=== PATIENT | male | born 1960 | race Caucasian/White ===

== ENCOUNTER 2017-05-12 19:36 | Emergency (ER) | payer MEDICARE, OTHER ==
--- NOTE | 2017-05-12 19:48 | ED Physician Documentation ---
General Adult - HISTORIAN Historian: patient, parent - HPI Stated Complaint: urinary retention Chief Complaint: General Adult Onset: hours Timing: still present Severity: moderate Further Comments: yes (Pt is a 57 yo male with cerebral palsy and urinary retention that began this am. Pt had similar problem 6 months ago, which was tx 'd with mason cath and meds. Pt is on Tamsulosin and Finasteride in addition to his other meds.) - PAST HX Allergies/Adverse Reactions: Allergies Allergy/AdvReac Type Severity Reaction Status Date / Time oxycodone HCl [From Percocet] Allergy Severe Anaphylaxis Verified 11/03/15 19:45 acetaminophen [From Percocet] Allergy Anaphylaxis Verified 11/03/15 19:45 Home Medications: Ambulatory Orders Medication Instructions Recorded Diazepam [Valium] 5 mg PO BID 04/19/13 Clonazepam [Klonopin] 0.5 mg PO Q6 PRN 10/04/14 Levothyroxine Sodium [Synthroid] 50 mcg PO D 10/28/15 Naproxen [Naprosyn] 500 mg PO BID PRN 10/28/15 Omeprazole [Omeprazole] 20 mg PO AM 10/28/15 Tamsulosin HCl [Flomax] 0.4 mg PO AM 10/28/15 Tramadol HCl [Tramadol HCl] 50 mg PO Q4 PRN 10/28/15 - VITAL SIGNS Vital Signs: Vital Signs Temp Pulse Resp BP Pulse Ox 141/64 01/23/16 02:40 Discharge Referrals: Ashley Lauren MD [Primary Care Provider] - 2 Days Home Medications: Ambulatory Orders Diazepam [Valium] 5 mg PO BID 04/19/13 Clonazepam [Klonopin] 0.5 mg PO Q6 PRN 10/04/14 Levothyroxine Sodium [Synthroid] 50 mcg PO D 10/28/15 Naproxen [Naprosyn] 500 mg PO BID PRN 10/28/15 Omeprazole [Omeprazole] 20 mg PO AM 10/28/15 Tamsulosin HCl [Flomax] 0.4 mg PO AM 10/28/15 Tramadol HCl [Tramadol HCl] 50 mg PO Q4 PRN 10/28/15
--- NOTE | 2017-05-12 19:58 | ED Physician Documentation ---
General Adult - HISTORIAN Historian: patient - HPI Stated Complaint: urinary retention Chief Complaint: General Adult Onset: hours Timing: still present Severity: moderate Further Comments: yes (Pt is a 57 yo male with cerebral palsy and c/o urinary retention. No void since 1:30 am. No bm since yesterday. Pt usually has bm daily. Pt had urinary retention 6 mos ago with similar presentation and is now taking tamsulosin and finasteride in addition to his other meds.) - ROS CONST: no problems EYES/ENT: none CVS/RESP: none GI/: problems urinating MS/SKIN/LYMPH: none - PAST HX Past History: other (anxiety, GERD, thyroid d/o, cp) Allergies/Adverse Reactions: Allergies Allergy/AdvReac Type Severity Reaction Status Date / Time oxycodone HCl [From Percocet] Allergy Severe Anaphylaxis Verified 05/12/17 21:12 acetaminophen [From Percocet] Allergy Anaphylaxis Verified 05/12/17 21:12 Home Medications: Ambulatory Orders Medication Instructions Recorded Diazepam [Valium] 5 mg PO BID 04/19/13 Clonazepam [Klonopin] 0.5 mg PO Q6 PRN 10/04/14 Levothyroxine Sodium [Synthroid] 50 mcg PO D 10/28/15 Naproxen [Naprosyn] 500 mg PO BID PRN 10/28/15 Omeprazole [Omeprazole] 20 mg PO AM 10/28/15 Tamsulosin HCl [Flomax] 0.4 mg PO AM 10/28/15 Tramadol HCl [Tramadol HCl] 50 mg PO Q4 PRN 10/28/15 Ciprofloxacin HCl [Cipro] 500 mg PO BID #14 tablet 05/12/17 Cyanocobalamin-Salcaprozat Sod 1,000 mcg PO 05/12/17 [Eligen B12] Finasteride [Proscar] 5 mg PO HS 05/12/17 - SOCIAL HX Smoking History: non-smoker - FAMILY HX Family History: No - VITAL SIGNS Vital Signs: Vital Signs Temp Pulse Resp BP Pulse Ox 98.2 F 70 16 109/77 97 05/12/17 19:36 05/12/17 19:36 05/12/17 19:36 05/12/17 19:36 05/12/17 19:36 - REVIEWED ASSESSMENTS Nursing Assessment Reviewed: Yes Vitals Reviewed: Yes Progress - Progress Progress: NS 500 cc IVF pt voided 150 cc in ER u/a neg Rx cipro 500 mg po bid x 7 days. General Adult Physical Exam - PHYSICAL EXAM GENERAL APPEARANCE: mild distress EENT: pharynx normal NECK: normal inspection, supple RESPIRATORY: no resp distress, chest non-tender, breath sounds normal CVS: reg rate & rhythm, heart sounds normal ABDOMEN: soft, no organomegaly, normal bowel sounds BACK: normal inspection SKIN: warm/dry, normal color EXTREMITIES: non-tender, no evidence of injury, other (braces in place (cp0) NEURO: oriented X3 Discharge Clincal Impression: Urinary retention Prescriptions: Ciprofloxacin HCl [Cipro] 500 mg PO BID #14 tablet Referrals: Ashley Lauren MD [Primary Care Provider] - Home Medications: Ambulatory Orders Diazepam [Valium] 5 mg PO BID 04/19/13 Clonazepam [Klonopin] 0.5 mg PO Q6 PRN 10/04/14 Levothyroxine Sodium [Synthroid] 50 mcg PO D 10/28/15 Naproxen [Naprosyn] 500 mg PO BID PRN 10/28/15 Omeprazole [Omeprazole] 20 mg PO AM 10/28/15 Tamsulosin HCl [Flomax] 0.4 mg PO AM 10/28/15 Tramadol HCl [Tramadol HCl] 50 mg PO Q4 PRN 10/28/15 Ciprofloxacin HCl [Cipro] 500 mg PO BID #14 tablet 05/12/17 Cyanocobalamin-Salcaprozat Sod [Eligen B12] 1,000 mcg PO 05/12/17 Finasteride [Proscar] 5 mg PO HS 05/12/17 Condition: Stable Disposition: 01 HOME, SELF-CARE Decision to Admit: NO Decision Time: 22:15
[2017-05-12] MEDS ORDERED: 0.9 % SODIUM CHLORIDE 1,000 ML IV ONE (20:01)
[2017-05-12 20:44] LABS: BASOPHILS % 1.2 (0.0-1.5); EOSINOPHILS % 1.3 % (0.0-6.8); MEAN CORPUSCULAR HEMOGLOBIN 30.6 pg (28.0-34.0); MEAN CORPUSCULAR VOLUME 88.2 fl (80.0-100.0)
[2017-05-12 21:03] LABS: eGFR (African) > 60; eGFR (Non-African) > 60
[2017-05-12] MEDS: 0.9 % SODIUM CHLORIDE 500 ML IV ONE (21:10)
[2017-05-12] MEDS: CIPROFLOXACIN HCL 500 MG TABLET PO ONE (22:09)
[2017-05-12 22:13] VITALS: BP 143/68
== END 2017-05-12 21:55 | disposition home or self-care (01) ==
LOC: ED 19:36
DX: R33.9 Retention of urine, unspecified (principal)
CPT/HCPCS: 80053; 85025; J7030; J7060; 96360; 99283

== ENCOUNTER 2017-06-06 15:56 | Emergency (ER) | payer OTHER ==
[2017-06-06] MEDS ORDERED: KETOROLAC TROMETHAMINE 60 MG/2 ML VIAL IM ONE (17:57)
[2017-06-06 18:30] VITALS: BP 122/82
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
--- NOTE | 2017-06-06 21:15 | Diagnostic Imaging Report ---
EVON BENITEZ (LEWIS) - ER [facility] [address] [address] [facility] [address] [place] [address]. [id number] Report Submission Date: Jun 06, 2017 4:38:56 PM CDT Patient Study Name: FABBY METZGER Date: Jun 06, 2017 4:08:38 PM CDT Modality Type: CR Gender: M Description: SHOULDER : 64 Institution: [facility] Physician: EVON BENITEZ (LEWIS) - ER Examination: Plain film shoulder History: Injury Comparison exams: None provided Findings: 3 views of the shoulder demonstrate normal cortical margins. No evidence for fracture or dislocation. No soft tissue abnormality Impression: No acute osseous process. Electronically signed on Jun 06, 2017 4:38:56 PM CDT by: Jeff QUIROZ
== END 2017-06-06 18:28 | disposition home or self-care (01) ==
LOC: ED 15:56
DX: S43.402A Unspecified sprain of left shoulder joint, initial encounter (principal); X58.XXXA Exposure to other specified factors, initial encounter; Y93.9 Activity, unspecified; Y99.9 Unspecified external cause status
CPT/HCPCS: 73030; J1885; 96372; 99283

== ENCOUNTER 2017-07-11 18:54 | Emergency (ER) | payer OTHER ==
[2017-07-11 19:26] VITALS: BP 123/92
--- NOTE | 2017-07-11 19:38 | ED Physician Documentation ---
Headache - HISTORIAN Historian: patient, parent - HPI Stated Complaint: headache Chief Complaint: Headache Additional Information: headache int onset this am after slept poor last noct. also appears depressed. his mother a few weeks ago. also his doctor red his thryoid meds recently and he has felt worse since; eats eliminates as usual. it is unusual for him to not sleep well Onset: other (this am) Timing: gradual, intermittent episodes Exposure To: none Severity: mild, moderate Quality: denies: similar to previous (unusual to have headaches. he has not taken any meds at all for the headache) Associated Symptoms: denies: fever, chills, sweating, problems with vision, sensitivity to light, nausea, vomiting, neck pain Exacerbated By: other ("it just comes and goes") - ROS NEURO/PSYCH: depression (denies but appears depressed). denies: confusion, anxiety EYES/ENT: denies: sore throat, difficulty swallowing, sinus pain, drainage CVS/RESP: none. denies: chest pain, shortness of breath GI/: denies: abdominal pain MS/SKIN/LYMPH: muscle aches (always has pain due to cerebral palsy. wears back and leg braces) all systems neg except as marked: Yes - PAST HX Medical History: denies: no pertinent history (cerebral palsycopd urinary retention at times apparently bph djd) Surgical History: denies: no surgical history (legs) Allergies/Adverse Reactions: Allergies Allergy/AdvReac Type Severity Reaction Status Date / Time oxycodone HCl [From Percocet] Allergy Severe Anaphylaxis Verified 07/11/17 19:03 acetaminophen [From Percocet] Allergy Anaphylaxis Verified 07/11/17 19:03 Home Medications: Ambulatory Orders Medication Instructions Recorded Diazepam [Valium] 5 mg PO BID 04/19/13 Clonazepam [Klonopin] 0.5 mg PO Q6 PRN 10/04/14 Levothyroxine Sodium [Synthroid] 25 mcg PO D 10/28/15 Naproxen [Naprosyn] 500 mg PO BID PRN 10/28/15 Omeprazole [Omeprazole] 20 mg PO AM 10/28/15 Tamsulosin HCl [Flomax] 0.4 mg PO AM 10/28/15 Tramadol HCl [Tramadol HCl] 50 mg PO Q4 PRN 10/28/15 Cyanocobalamin-Salcaprozat Sod 1,000 mcg PO DAILY 05/12/17 [Eligen B12] Finasteride [Proscar] 5 mg PO HS 05/12/17 - SOCIAL HX Smoking History: non-smoker Alcohol Use: none Drug Use: none - Family HX Family History: none - VITAL SIGNS Vital Signs: Vital Signs Temp Pulse Resp BP Pulse Ox 98.8 F 61 16 123/92 97 07/11/17 19:00 07/11/17 19:00 07/11/17 19:00 07/11/17 19:00 07/11/17 19:00 - REVIEWED ASSESSMENTS Nursing Assessment Reviewed: Yes Vitals Reviewed: Yes Headache Physical Exam - EXAM General Appearance: mild distress EENT: no facial swelling, eyes nml inspection, nml ENT. No: pain over sinuses Neck: normal inspection, thyroid normal, supple Respiratory: no resp distress, chest non-tender, breath sounds normal CVS: reg. rate & rhythm Abdomen: non-tender Skin: color nml, no rash. No: cyanosis, diaphoresis, pallor, ecchymosis Extremitites: non-tender, normal range of motion, no evidence of injury, no edema - NEURO/PSYCH Higher Functions: alert Discharge Clincal Impression: headache insomnia probablel depression Referrals: Ashley Lauren MD [Primary Care Provider] - 2 Days Comments: take tramadol for headache use his clonazepam for sleep also tylenoll prn pain. may [id number] thryoid back to usual dose until sees pcp Condition: Good Disposition: 01 HOME, SELF-CARE Decision to Admit: NO Decision Time: 19:46
== END 2017-07-11 19:43 | disposition home or self-care (01) ==
LOC: ED 18:54
DX: R51 Headache (principal); G47.00 Insomnia, unspecified
CPT/HCPCS: 99283

== ENCOUNTER 2017-10-24 19:48 | Emergency (ER) | payer OTHER ==
[2017-10-24] MEDS ORDERED: KETOROLAC TROMETHAMINE 30 MG/1ML VIAL IM ONE (20:19)
[2017-10-24] MEDS ORDERED: methylPREDNISolone SOD SUCC 125 MG/2 ML VIAL IM ONE (20:19)
--- NOTE | 2017-10-24 20:22 | ED Physician Documentation ---
Lower Extremity Problem - HISTORIAN Historian: patient - HPI Stated Complaint: Bilateral knee pain Chief Complaint: Lower Extremity Problem Additional Information: chronic joint pain, chronic knee pain, worse past 5 days. no new trauma or injury, no other complaints. Location of Injury: R knee, L knee Onset: days ago Timing: still present Duration: constant Recent Injury: No Severity: mild Quality: pain, tenderness Exacerbated By: walking, movement Relieved By: nothing Associated Symptoms: denies: chest pain, shortness of breath, rapid heart rate Further Comments: no - ROS CONST: no problems MS/SKIN/LYMPH: joint pain CVS/RESP: none GI/: none EYES/ENT: none NERUO/PSYCH: difficulty walking (polio) - PAST HX Past History: other (polio, arthritis) Surgeries/Procedures: none Allergies/Adverse Reactions: Allergies Allergy/AdvReac Type Severity Reaction Status Date / Time oxycodone HCl [From Percocet] Allergy Severe Anaphylaxis Verified 10/24/17 20:03 acetaminophen [From Percocet] Allergy Anaphylaxis Verified 10/24/17 20:03 Home Medications: Ambulatory Orders Medication Instructions Recorded Diazepam [Valium] 5 mg PO BID 04/19/13 Clonazepam [Klonopin] 0.5 mg PO Q6 PRN 10/04/14 Levothyroxine Sodium [Synthroid] 25 mcg PO D 10/28/15 Naproxen [Naprosyn] 500 mg PO BID PRN 10/28/15 Omeprazole [Omeprazole] 20 mg PO AM 10/28/15 Tamsulosin HCl [Flomax] 0.4 mg PO AM 10/28/15 Tramadol HCl [Tramadol HCl] 50 mg PO Q4 PRN 10/28/15 Cyanocobalamin-Salcaprozat Sod 1,000 mcg PO DAILY 05/12/17 [Eligen B12] Finasteride [Proscar] 5 mg PO HS 05/12/17 - SOCIAL HX Smoking History: non-smoker Alcohol Use: none Drug Use: none - FAMILY HX Family History: none - VITAL SIGNS Vital Signs: Vital Signs Temp Pulse Resp BP Pulse Ox 99.0 F 93 H 16 106/80 95 10/24/17 19:50 10/24/17 19:50 10/24/17 19:50 10/24/17 19:50 10/24/17 19:50 - REVIEWED ASSESSMENTS Nursing Assessment Reviewed: Yes Vitals Reviewed: Yes ED Results Lab/Radiology - Orders Orders: ED Orders Category Date Time Status Ketorolac Tromethamine [Toradol] Med 10/24/17 20:19 Once 30 mg IM NOW ONE methylPREDNISolone SOD SUCC [Solu-MEDROL] Med 10/24/17 20:19 Once 125 mg IM NOW ONE Lower Extremity Problem - EXAM General Appearance: no distress Hips: bilateral hip: non-tender Legs: bilateral: non-tender, normal inspection Knees: bilateral: normal inspection, no evidence of injury, soft tissue tenderness Ankle: bilateral: non-tender, normal inspection Foot: bilateral foot: non-tender, normal inspection Neuro/Tendon: normal sensation EENT: ENT inspection normal RESPIRATORY: no resp distress CVS: equal pulses VASCULAR: no vascular compromise NEURO/PSYCH: oriented X3 SKIN: warm/dry, normal color Discharge Clincal Impression: Arthritis of both knees Referrals: Ashley Lauren MD [Primary Care Provider] - 2 Days Condition: Stable Disposition: HOME, SELF-CARE Decision to Admit: NO Date of Decison to Admit: 10/24/17 Decision Time: 20:25
[2017-10-24 20:44] VITALS: BP 91/44
== END 2017-10-24 20:41 | disposition home or self-care (01) ==
LOC: ED 19:48
DX: M13.862 Other specified arthritis, left knee (principal); M13.861 Other specified arthritis, right knee
CPT/HCPCS: 96372; 99283; J1885; J2930

== ENCOUNTER 2019-09-19 16:26 | Emergency (ER) | payer OTHER ==
[2019-09-19 17:05] VITALS: BP 115/87
--- NOTE | 2019-09-19 17:43 | ED Physician Documentation ---
Ear Complaints - HISTORIAN Historian: patient, parent - HPI Stated Complaint: ear pain Chief Complaint: Ear Complaints Additional Information: lt ear pain onset 1 week ago occ mild drainage-color unsure Timing: worse Location of Pain: L ear Severity: moderate Associated Symptoms: fever, chills, dull pain - ROS CONST: no problems CVS/RESP: none GI/: denies: nausea, vomiting MS/SKIN/LYMPH: none. denies: rash, swollen glands NEURO/PSYCH: none All Systems -: No - PAST HX Past History: other (cerebral palsy copd htn lo thryoid ch backk pain BPH) Allergies/Adverse Reactions: Allergies Allergy/AdvReac Type Severity Reaction Status Date / Time oxycodone HCl [From Percocet] Allergy Severe Anaphylaxis Verified 09/19/19 16:52 acetaminophen [From Percocet] Allergy Anaphylaxis Verified 09/19/19 16:52 Home Medications: Ambulatory Orders Medication Instructions Recorded diazePAM [Valium] 5 mg PO BID 04/19/13 Clonazepam [Klonopin] 0.5 mg PO Q6 PRN 10/04/14 Levothyroxine Sodium [Synthroid] 25 mcg PO D 10/28/15 Naproxen [Naprosyn] 500 mg PO BID PRN 10/28/15 Omeprazole 20 mg PO AM 10/28/15 Tamsulosin HCl [Flomax] 0.4 mg PO AM 10/28/15 Tramadol HCl 50 mg PO Q4 PRN 10/28/15 Cyanocobalamin/Salcaprozat Sod 1,000 mcg PO DAILY 05/12/17 [Eligen B12] Finasteride [Proscar] 5 mg PO HS 05/12/17 Amoxicillin [Trimox] 500 mg PO QID #40 capsule 09/19/19 - SOCIAL HX Smoking History: non-smoker Alcohol Use: none Drug Use: none - FAMILY HX Family History: Yes (father w/pt apparent guardian) - VITAL SIGNS Vital Signs: Vital Signs Temp Pulse Resp BP Pulse Ox 98.1 F 77 16 115/87 97 09/19/19 16:32 09/19/19 16:32 09/19/19 16:32 09/19/19 16:32 09/19/19 16:32 - REVIEWED ASSESSMENTS Nursing Assessment Reviewed: Yes Vitals Reviewed: Yes Ear Complaint Physical Exam - EXAM General Appearance: mild distress, moderate distress Ear: auricle nml, cerumen, other (sig erythema lt TM hears equally each ear). 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 No: guarding, swelling Skin: nml color, no skin rash. No: pallor, cyanosis, skin rash, ecchymosis Neuro/Psych: oriented x3 Discharge Clincal Impression: otitis media, hx cerebral palsy Prescriptions: Amoxicillin [Trimox] 500 mg PO QID #40 capsule Referrals: Ashley Lauren MD [Primary Care Provider] - 2 Days Comments: amoxicillin 500 qid Condition: Good Disposition: 01 HOME, SELF-CARE Decision to Admit: NO Decision Time: 17:52
== END 2019-09-19 17:38 | disposition home or self-care (01) ==
LOC: ED 16:26
DX: H66.92 Otitis media, unspecified, left ear (principal); Z86.69 Personal history of other diseases of the nervous system and sense organs
CPT/HCPCS: 99284